=== PATIENT | male | born 1980 | race African-American/Black ===

== ENCOUNTER 2017-11-05 10:18 | Emergency (ER) | payer SELFPAY ==
[2017-11-05] MEDS ORDERED: HYDROmorphone HCL 1 MG/ML SYRINGE (J1170) As Ordered (11:33)
[2017-11-05] MEDS: HYDROmorphone HCL 1 MG/ML SYRINGE (J1170) IV (11:43)
[2017-11-05] MEDS: ONDANSETRON 4MG/2ML VIAL (J2405) IV (11:45)
[2017-11-05] MEDS: MORPHINE 4 MG/ML 1ML VIAL/SYRINGE (J2270) IV (12:53)
[2017-11-05] MEDS ORDERED: ceFAZolin 1GM INJ (J0690 PER 500MG) As Ordered (12:58)
== END 2017-11-05 14:17 | disposition home or self-care (01) ==
LOC: M ED 10:18
DX: S92.324A Nondisplaced fracture of second metatarsal bone, right foot, initial encounter for closed fracture (principal); S92.334A Nondisplaced fracture of third metatarsal bone, right foot, initial encounter for closed fracture; W23.0XXA Caught, crushed, jammed, or pinched between moving objects, initial encounter; Y92.9 Unspecified place or not applicable; Y93.9 Activity, unspecified; Y99.9 Unspecified external cause status; Z91.013 Allergy to seafood
CPT/HCPCS: J1170